=== PATIENT | male | born 1975 | race Asian ===

== ENCOUNTER → 2024-02-06 | Day surgery (SDC) | payer OTHER ==
[~2024-02-06] MED LIST: DEXMEDETOMIDINE HCL 200 MCG/2 ML VIAL ONE; LACTATED RINGER'S 1,000 ML ONE; LIDOCAINE HCL 2% LOCAL INJ 5 ML SDV VIAL INJ ONE; MIDAZOLAM HCL 2 MG/2 ML VIAL ONE; PROPOFOL IV EMULSION 10 MG/ML 50 ML VIAL IV ONE
[2024-02-06 17:15] VITALS: BP 114/56; PULSE 73; RESP 17; TEMP 97.6; O2SAT 99
== END | disposition home or self-care (01) ==
LOC: OR 14:17
PROVIDERS: ATTEND Internal Medicine Gastroenterology
DX: Z12.11 Encounter for screening for malignant neoplasm of colon (principal); K64.8 Other hemorrhoids; R00.1 Bradycardia, unspecified; Z01.810 Encounter for preprocedural cardiovascular examination
CPT/HCPCS: 45378; 93005; J2001; J2250; J2704; J7121